=== PATIENT | male | born 1985 | race Caucasian/White ===

== ENCOUNTER 2021-07-04 12:51 | Outpatient (CLI) | payer OTHER ==
--- NOTE | 2021-07-04 15:04 | XRAY Report ---
PROCEDURE: Elbow 2 View RT INDICATIONS: R ELBOW PX TECHNIQUE: 2 views of the elbow were acquired. COMPARISON: None FINDINGS: Bones: No fractures or dislocations. No suspicious bony lesions. Joint space is maintained. Soft tissues: No elbow joint effusion. No suspicious soft tissue calcifications. IMPRESSION: No acute finding. Reviewed by: Masoud Martínez MD on 07/04/2021 3:02 PM PDT Approved by: Masoud Martínez MD on 07/04/2021 3:02 PM PDT Station ID: [id number]
== END 2021-07-04 23:59 | disposition home or self-care (01) ==
LOC: DI.N 12:51
PROVIDERS: ATTEND Family Medicine
DX: M25.521 Pain in right elbow (principal)